=== PATIENT | male | born 1975 | race Caucasian/White ===

== ENCOUNTER 2016-10-12 13:37 | Outpatient (CLI) | payer OTHER ==
--- NOTE | 2016-10-12 15:29 | Cat Scan Report ---
CT LOWER EXTREMITY RIGHT WITHOUT CONTRAST History: Right foot plantar mass. Technique: Helical CT without IV contrast. Sagittal and coronal reformatted images. Findings: No comparison. There is a focal, well-circumscribed, soft tissue density masslike lesion along the plantar surface of the foot beneath the first/second metatarsal. This mass measures 1.6 x 1.0 x 2.4 cm. There appears to be an intermittent association with the plantar fascia. No aggressive mass or inflammatory changes. No calcifications. The remaining plantar soft tissues are within normal limits. No plantar spur. Mild osteoarthritic changes are noted at the ankle joint and mid foot. No erosive joint pathology. No bone lesion or fracture. Impression: Benign-appearing mass with intimate association the plantar fascia as outlined above. 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 This could be further evaluated with MRI with contrast if needed.
== END 2016-10-12 13:38 | disposition home or self-care (01) ==
LOC: CT 13:37
PROVIDERS: ATTEND Internal Medicine
DX: M19.071 Primary osteoarthritis, right ankle and foot (principal); M25.871 Other specified joint disorders, right ankle and foot

== ENCOUNTER 2017-03-15 13:28 | Outpatient (CLI) | payer OTHER ==
--- NOTE | 2017-03-15 15:22 | Magnetic Resonance Report ---
MR LOWER EXTREMITY JOINT RIGHT WITHOUT CONTRAST History: Soft tissue masses. Technique: Multisequence, multiplanar MRI without IV contrast Findings: No change is appreciated since the CT right lower extremity dated 10/12/16. Again, there is a nodule with intimate association to the plantar fascia measuring 1.6 x 1.0 x 2.4 cm which remains consistent with a fibroma. No new masses are identified. The remaining soft tissues are within normal limits. The bony structures demonstrate normal bone marrow signal. No evidence for fracture, bone lesion or erosive joint pathology. The musculotendinous structures are intact and normal signal. No rupture or tenosynovitis. Impression: No change in the assumed plantar fibroma since the CT dated 10/12/16.
== END 2017-03-15 13:29 | disposition home or self-care (01) ==
LOC: MRI 13:28
PROVIDERS: ATTEND Internal Medicine
DX: M79.89 Other specified soft tissue disorders (principal); F41.9 Anxiety disorder, unspecified
CPT/HCPCS: 73721